=== PATIENT | female | born 1980 | race African-American/Black ===

== ENCOUNTER 2022-02-01 14:47 | Outpatient (CLI) | payer MEDICAID | END 2022-02-01 14:48 | disposition home or self-care (01) | LOC: BICMAMMO 14:47 | PROVIDERS: ATTEND Family Medicine | DX: Z12.31 Encounter for screening mammogram for malignant neoplasm of breast (principal); N63.11 Unspecified lump in the right breast, upper outer quadrant | CPT/HCPCS: 77067 ==

== ENCOUNTER 2022-02-07 09:24 | Outpatient (CLI) | payer MEDICAID | END 2022-02-07 09:25 | disposition home or self-care (01) | LOC: BICMAMMO 09:24 | PROVIDERS: ATTEND Family Medicine | DX: R92.8 Other abnormal and inconclusive findings on diagnostic imaging of breast (principal); N60.01 Solitary cyst of right breast | CPT/HCPCS: G0279 ==